=== PATIENT | female | born 1975 | race African-American/Black ===

== ENCOUNTER 2022-01-31 20:06 | Emergency (ER) | payer MEDICAID ==
[~2022-01-31] VITALS: Ht 180.3 cm; Wt 93.9 kg
[2022-01-31] MEDS ORDERED: IOHEXOL 300 MG/ML 100ML BOTTLE IJ ONE (20:54)
[2022-01-31 21:01] LABS: Basophils # (auto) 0.1 10 ^3/uL (0-0.2); Basophils % (auto) 1.5 % (0.0-2.0); Eosinophils # (auto) 0.3 10 ^3/uL (0-0.8); Eosinophils % (auto) 5.8 % (0.0-7.0); Hematocrit 39.8 % (36.0-46.0); Hemoglobin 13.2 g/dL (12.2-16.2); Lymphocytes # (auto) 1.9 10 ^3/uL (0.4-5.4); Lymphocytes % (auto) 36.2 % (10.0-50.0); Mean Corpuscular Hgb Conc. 33.2 g/dL (32.0-36.0); Mean Corpuscular Volume 78.3 fL (80.0-100.0); Monocytes # (auto) 0.4 10 ^3/uL (0-1.3); Monocytes % (auto) 8.6 % (0.0-12.0); Neutrophils # (auto) 2.5 10 ^3/uL (1.6-8.6); Neutrophils % (auto) 47.9 % (37.0-80.0); Nucleated Red Blood Cells % 0.3 %; Red Blood Cells 5.08 10^6/uL (4.0-5.20); White Blood Cell 5.2 10^3/uL (4.4-10.8)
[2022-01-31 21:03] LABS: Red Cell Distribution Width 22.1 % (11.8-14.3)
[2022-01-31 21:17] LABS: Albumin 3.5 g/dL (3.4-5.0); BUN/Creatinine Ratio 15.7; Calcium 8.5 mg/dL (8.5-10.1)
[2022-01-31 21:19] LABS: Bilirubin, Total 0.7 mg/dL (0.2-1.0)
[2022-01-31] MEDS ORDERED: DOXYCYCLINE 100 MG TAB/CAP PO ONE (23:45)
[2022-02-01 01:22] VITALS: BP 140/85
[2022-02-01] MEDS ORDERED: CLIN-188 PO (01:36)
[2022-02-01] MEDS ORDERED: DOXY-286 PO (01:36)
== END 2022-02-01 01:44 | disposition home or self-care (01) ==
LOC: ER 20:06
DX: Q82.9 Congenital malformation of skin, unspecified (principal); Z86.2 Personal history of diseases of the blood and blood-forming organs and certain disorders involving the immune mechanism
CPT/HCPCS: 36415; 74177; 80053; 85025; 99285; Q9967